=== PATIENT | male | born 1970 | race Hispanic/Latino ===

== ENCOUNTER 2018-09-22 15:06 | Emergency (ER) | payer BC ==
[2018-09-22 15:46] VITALS: RESP 18; TEMP 98.2
[2018-09-22 15:47] VITALS: BMI 24.6
[2018-09-22] MEDS ORDERED: Lidocaine PF 2% (5 ml) Inj (For Cardiac Arrhy) ONE (16:21)
[2018-09-22] MEDS ORDERED: TDAP Vaccine 0.5 mL Syr IM ONE (16:28)
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
[2018-09-22 16:45] VITALS: BP 133/86; PULSE 84; O2SAT 98
== END 2018-09-22 16:45 | disposition home or self-care (01) ==
LOC: ED 15:06
DX: S61.211A Laceration without foreign body of left index finger without damage to nail, initial encounter (principal); W27.0XXA Contact with workbench tool, initial encounter; Y92.9 Unspecified place or not applicable; Z23 Encounter for immunization